=== PATIENT | female | born 1940 | race Caucasian/White ===

== ENCOUNTER 2018-04-22 08:27 | Day surgery (SDC) | payer MEDICARE, BC ==
[2018-04-22] MEDS ORDERED: Midazolam 1 MG/ML 2 ML SDV ONE (08:42)
[2018-04-22] MEDS ORDERED: fentaNYL 100 MCG/2 ML SDV ONE (08:42)
[2018-04-22] MEDS ORDERED: Propofol 200 MG/20 ML SDV ONE (08:42)
[2018-04-22] MEDS ORDERED: Lactated Ringers 1,000 ML IV SCH (09:15)
[2018-04-22 11:01] VITALS: BP 130/72
--- NOTE | 2018-04-23 08:10 | OR ---
DATE OF PROCEDURE: 04/22/2018 PREOPERATIVE DIAGNOSIS: Anemia. POSTOPERATIVE DIAGNOSES: 1. Gastroesophageal reflux disease. 2. 5 cm hiatal hernia. 3. Small gastric ulcers. 4. Colonic diverticulosis. PROCEDURES: 1. Esophagogastroduodenoscopy with biopsy of the gastric ulcers in antrum for CLOtest and for pathology to look for Helicobacter pylori. 2. Biopsy of gastroesophageal junction. 3. Colonoscopy to the cecum. ANESTHESIA: IV anesthesia with monitored anesthesia care. INDICATION: This 77-year-old white female is referred for upper and lower endoscopy because of anemia. Her hemoglobin was in the 8 to 9 range. I counseled her for upper and lower endoscopy with possible biopsy and/or polypectomy including risks and alternatives, and she gave her informed consent to proceed. DESCRIPTION OF PROCEDURE: The patient was placed in the left lateral decubitus position. IV anesthesia was administered by the Anesthesia Service. Time-out was held. The flexible video Olympus upper endoscope was passed through her mouth, down her esophagus, and into her stomach. We had to pass through about a 5-cm hiatal hernia. The scope was then easily passed through the pylorus, into the duodenum, and reaching its third portion. The scope was then slowly withdrawn, examining the mucosa throughout. The duodenal mucosa appeared unremarkable. The scope was brought back up through the pylorus. In the stomach, we encountered several small ulcers, they were currently not bleeding. We did obtain biopsies of the stomach for CLOtest and for pathology to look for Helicobacter pylori. The scope was retroflexed. We did visualize the hiatal hernia. The scope was straightened and brought up through about 5 cm hiatal hernia. The GE junction was markedly abnormal with obvious inflammation present as well as the Z-line being abnormal with fingers of gastric mucosa going proximally up into the esophagus. We obtained multiple, totalling at least 6, biopsies of the gastroesophageal junction. The scope was then brought proximally up through the remainder of the esophagus, which otherwise appeared unremarkable. Next, a rectal exam was performed, which was unremarkable. The flexible video Olympus colonoscope was introduced through her anus, up her rectum, and out her colon, all the way to the cecum. En route, we saw both left and right-sided diverticula. There was no bleeding or inflammation associated with any of them. To reach the cecum, we had to apply abdominal compression. Once the cecum was reached, the scope was slowly withdrawn, examining the mucosa throughout. No additional mucosal abnormalities were noted. No neoplastic lesions were seen. The scope was retroflexed in the rectum with the distal rectum appearing unremarkable. The scope was straightened and removed. She tolerated the procedure well. Leonardo Bennett MD /[id number]
== END 2018-04-22 11:22 | disposition home or self-care (01) ==
LOC: JP.SDS 08:27
PROVIDERS: ATTEND Surgery
DX: D64.9 Anemia, unspecified (principal); K25.9 Gastric ulcer, unspecified as acute or chronic, without hemorrhage or perforation; K29.50 Unspecified chronic gastritis without bleeding; K22.70 Barrett's esophagus without dysplasia; K44.9 Diaphragmatic hernia without obstruction or gangrene; K57.30 Diverticulosis of large intestine without perforation or abscess without bleeding; I10 Essential (primary) hypertension; F17.200 Nicotine dependence, unspecified, uncomplicated; Z88.8 Allergy status to other drugs, medicaments and biological substances
CPT/HCPCS: 43239; 45378; 87081; 88305; J2250; J2704; J3010; J7120

== ENCOUNTER → 2018-06-03 | Day surgery (SDC) | payer MEDICARE, BC ==
[~2018-06-03] MED LIST: Lactated Ringers 1,000 ML IV SCH; Propofol 200 MG/20 ML SDV ONE; fentaNYL 100 MCG/2 ML SDV ONE
--- NOTE | 2018-06-03 08:31 | OR ---
DATE OF PROCEDURE: 06/03/2018 PREOPERATIVE DIAGNOSES: 1. History of pre-pyloric ulcers. 2. History of Ott's esophagus. 3. Hiatal hernia. POSTOPERATIVE DIAGNOSES: 1. History of pre-pyloric ulcers. Pre-pyloric ulcers have healed. 2. History of Ott's esophagus. 3. Hiatal hernia. 4. Duodenal polyps. PROCEDURES PERFORMED: Esophagogastroduodenoscopy with biopsy sampling of duodenal polyps. ANESTHESIA: IV anesthesia with monitored anesthesia care. INDICATION: This 77-year-old white female is here for a colonoscopy 6 weeks after undergoing upper endoscopy, which showed pre-pyloric ulcers. In addition, at that time, she was noted to have a small hiatal hernia and Ott's esophagus. I counseled her for upper endoscopy with possible biopsy, including the risks and alternatives, and she gave her informed consent to proceed. DESCRIPTION OF PROCEDURE: The patient was placed in the left lateral decubitus position. IV anesthesia was administered by the Anesthesia Service. Time-out was held. The flexible video Olympus upper endoscope was passed through her mouth, down her esophagus, and into her stomach. The scope was easily passed through the pylorus and into the duodenum, reaching its third portion. The scope was then slowly withdrawn, examining the mucosa throughout. The distal duodenum appeared unremarkable. In the proximal duodenum, there were sheets of small polyps. We sampled these. The scope was brought up through the pylorus and into the antrum. The antrum appeared unremarkable. The ulcers have healed. The scope was retroflexed. The proximal stomach appeared unremarkable. The scope was straightened and brought up through the hiatal hernia. The GE junction still had evidence of chronic inflammation consistent with her Ott's esophagus. The scope was then brought through the remainder of the esophagus, which otherwise appeared unremarkable and was removed. She tolerated the procedure well. Leonardo Bennett MD /[id number]
[2018-06-03 08:53] VITALS: BP 117/65
== END ==
LOC: JP.SDS 06:30
PROVIDERS: ATTEND Surgery
DX: K29.50 Unspecified chronic gastritis without bleeding (principal); K44.9 Diaphragmatic hernia without obstruction or gangrene; K31.7 Polyp of stomach and duodenum; I10 Essential (primary) hypertension; E11.9 Type 2 diabetes mellitus without complications; Z87.19 Personal history of other diseases of the digestive system; Z88.8 Allergy status to other drugs, medicaments and biological substances
CPT/HCPCS: 43239; J2704; J3010; J7120; 88305; 88342

== ENCOUNTER 2022-11-04 04:52 | Emergency (ER) | payer MEDICARE, BC ==
[2022-11-04 05:07] VITALS: BP 127/75; PULSE 109
[2022-11-04 06:13] LABS: CORONAVIRUS COVID-19 NAA POSITIVE (NEGATIVE)
== END 2022-11-04 06:28 | disposition home or self-care (01) ==
LOC: JP.ED 04:52
DX: U07.1 COVID-19 (principal); I10 Essential (primary) hypertension; E11.9 Type 2 diabetes mellitus without complications; F17.210 Nicotine dependence, cigarettes, uncomplicated; Z88.8 Allergy status to other drugs, medicaments and biological substances; Z79.899 Other long term (current) drug therapy; Z79.82 Long term (current) use of aspirin; Z79.84 Long term (current) use of oral hypoglycemic drugs; Z90.49 Acquired absence of other specified parts of digestive tract
CPT/HCPCS: 0241U; 71046; 99285